=== PATIENT | female | born 1970 | race Caucasian/White ===

== ENCOUNTER 2017-03-06 21:13 | Emergency (ER) | payer MEDICAID ==
[~2017-03-06] VITALS: Ht 154.9 cm; Wt 73.5 kg
[2017-03-06 22:03] VITALS: Ht 154.9 cm; Wt 73.5 kg
[2017-03-06] MEDS ORDERED: SOD CHLORIDE 0.9% 1,000 ML IV STA (23:50)
[2017-03-06] MEDS ORDERED: morphine 4 MG/ML VIAL IV STA (23:50)
[2017-03-06] MEDS ORDERED: ONDANSETRON 4 MG INJ IV STA (23:50)
--- NOTE | 2017-03-07 | ERD ---
ER Documentation Chief Complaint Date/Time DATE: 03/06/17 TIME: 23:58 Chief Complaint ruq abd pain x 2 weeks worst today HPI 46-year-old female presents to emergency department for complaints of right upper quadrant abdominal started 2 weeks ago. Patient describes the pain as sharp pain, 6/10 scale, not better or worse with anything. Patient denies any fever or chills. Patient denies any diarrhea or constipation. Patient denies any vomiting. ROS All systems reviewed and are negative except as per history of present illness. Medications Home Meds Reported Medications [none] Unknown Strength No Conflict Check 03/06/17 Allergies Allergies: Coded Allergies: No Known Allergy (Unverified , 03/06/17) PMhx/Soc Medical and Surgical Hx: pt denies Medical Hx, pt denies Surgical Hx Hx Alcohol Use: No Hx Substance Use: No Hx Tobacco Use: No Smoking Status: Never smoker FmHx Family History: No coronary disease, No diabetes, No other Physical Exam Vitals Vital Signs Date Time Temp Pulse Resp B/P Pulse Ox O2 Delivery O2 Flow Rate FiO2 03/06/17 22:03 99.0 79 18 128/63 99 Physical Exam GENERAL: The patient is well developed and appropriate for usual state of health, in no apparent distress. CHEST: Clear to auscultation bilaterally. There are no rales, wheezes or rhonchi. HEART: Regular rate and rhythm. No murmurs, clicks, rubs or gallops. No S3 or S4. ABDOMEN: Soft, nontender and nondistended. Good bowel sounds. No rebound or guarding. No gross peritonitis. No gross organomegaly or masses. No Mejia sign or McBurney point tenderness. BACK: No midline or flank tenderness. EXTREMITIES: Equal pulses bilaterally. There is no peripheral clubbing, cyanosis or edema. No focal swelling or erythema. Full range of motion. Grossly neurovascularly intact. NEURO: Alert and oriented. Cranial nerves 2-12 intact. Motor strength in all 4 extremities with 5/5 strength. Sensation grossly intact. Normal speech and gait. SKIN: There is no apparent rash or petechia. The skin is warm and dry. HEMATOLOGIC AND LYMPHATIC: There is no evidence of excessive bruising or lymphedema. No gross cervical, axillary, or inguinal lymphadenopathy. Result Diagram: 03/07/170 03/07/17 0030 Results 24 hrs Laboratory Tests Test 03/07/17 00:10 03/07/17 00:30 Urine Color YELLOW Urine Clarity CLOUDY Urine pH 7.0 Urine Specific [place] 1.012 Urine Ketones NEGATIVEmg/dL Urine Nitrite NEGATIVEmg/dL Urine Bilirubin NEGATIVEmg/dL Urine Urobilinogen NEGATIVEmg/dL Urine Leukocyte Esterase 1+Brigid/ul Urine Microscopic RBC 1/HPF Urine Microscopic WBC 3/HPF Urine Squamous Epithelial Cells MODERATE/HPF Urine Bacteria FEW/HPF Urine Hemoglobin 2+mg/dL Urine Glucose NEGATIVEmg/dL Urine Total Protein NEGATIVEmg/dl White Blood Count 10.010^3/ul Red Blood Count 4.1810^6/ul Hemoglobin 12.2g/dl Hematocrit 36.7% Mean Corpuscular Volume 87.8fl Mean Corpuscular Hemoglobin 29.2pg Mean Corpuscular Hemoglobin Concent 33.2g/dl Red Cell Distribution Width 12.4% Platelet Count 94270^3/UL Mean Platelet Volume 9.6fl Neutrophils % 52.2% Lymphocytes % 36.7% Monocytes % 7.1% Eosinophils % 3.0% Basophils % 0.7% Nucleated Red Blood Cells % 0.0/100WBC Neutrophils # 5.210^3/ul Lymphocytes # 3.710^3/ul Monocytes # 0.710^3/ul Eosinophils # 0.310^3/ul Basophils # 0.110^3/ul Nucleated Red Blood Cells # 0.010^3/ul Sodium Level 140mmol/L Potassium Level 3.6mmol/L Chloride Level 103mmol/L Carbon Dioxide Level 28mmol/L Anion Gap 13 Blood Urea Nitrogen 17mg/dl Creatinine 0.79mg/dl Glucose Level 92mg/dl Calcium Level 9.6mg/dl Total Bilirubin 0.2mg/dl Direct Bilirubin 0.00mg/dl Indirect Bilirubin 0.2mg/dl Aspartate Amino Transf (AST/SGOT) 27IU/L Alanine Aminotransferase (ALT/SGPT) 40IU/L Alkaline Phosphatase 84IU/L Total Protein 8.2g/dl Albumin 4.0g/dl Globulin 4.20g/dl Albumin/Globulin Ratio 0.95 Lipase 70U/L Current Medications Medications (Trade) Dose Ordered Sig/Diana Route PRN Reason Start Time Stop Time Status Last Admin Dose Admin Sodium Chloride (NS) 1,000 ml @ 1,000 mls/hr Q1H STAT IV 03/06/17 23:50 03/07/17 00:49 DC 03/07/17 00:41 Morphine Sulfate (morphine) 4 mg ONCE STAT IV 03/06/17 23:50 03/06/17 23:54 DC 03/07/17 00:41 Ondansetron HCl (Zofran Inj) 4 mg ONCE STAT IV 03/06/17 23:50 03/06/17 23:54 DC 03/07/17 00:41 Patient was given medication for pain here in emergency department, after treatment, patient verbalized feeling much better. Patient's pain is improved. Normal saline IV bolus was given here in emergency department for rehydration, patient tolerated IV fluids. PROCEDURE: Abdominal ultrasound, limited. CLINICAL INDICATION: Abdominal pain. TECHNIQUE: Multiple real-time images were acquired of the patient's right upper abdomen utilizing a high resolution transducer. COMPARISON: None FINDINGS: The liver demonstrates normal echogenicity and size measuring 15.5 cm. There is no focal mass or intrahepatic biliary ductal dilatation. The portal vein is patent. The gallbladder is not distended. No gallstones are identified. There is no pericholecystic fluid or gallbladder wall thickening. The common bile duct measures 5.4 mm in maximal dimension. The visualized portions of the pancreas are unremarkable. No free fluid is identified. The right kidney is normal size and echogenicity measuring 10.0 cm. There is no focal renal mass or echogenic calculus identified. There is no obstructive uropathy. IMPRESSION: Unremarkable right upper abdominal ultrasound. .Jorje Kirby MD, MD Date Time Electronically viewed and signed by .Jorje Kirby MD, MD on 03/07/2017 01:11 .T/ CC: ALFONSO ROBERTS NP PROCEDURE: CT Abdomen and pelvis without contrast. CLINICAL INDICATION: Abdominal pain. TECHNIQUE: CT scan of the abdomen and pelvis was performed on a multi- detector high-resolution CT scanner. Contiguous axial images were obtained from the lung bases to the ischial tuberosities without intravenous contrast. Coronal and sagittal reformatted images were also obtained. Images were reviewed on the PACS workstation. One or more of the following dose reduction techniques were used: - Automated exposure control. - Adjustment of the mA and/or kV according to patient size. - Use of iterative reconstruction technique. Exam CTD/vol = 16.19 mGy. Total exam DLP = 913.45 mGy-cm. COMPARISON: None. FINDINGS: Evaluation of the lung bases demonstrates mild bibasilar atelectasis. Abdomen: The liver is normal in size and diffusely low in attenuation consistent with mild fatty infiltration. There is no focal mass or dilatation of the biliary tree. The gallbladder is not distended. The spleen, pancreas and bilateral adrenal glands are within normal limits. Bilateral kidneys are normal in size with no contour deforming mass identified. There is a punctate 1 mm calculus within the lower pole of the right kidney. There is no radiopaque ureteral calculus identified. There is no hydronephrosis or hydroureter. There is no retroperitoneal adenopathy. The abdominal aorta is of normal caliber. There is no abnormal bowel wall thickening or distension. There is no bowel obstruction or free air. A normal appendix is identified. There is no diverticulosis or diverticulitis. There is no ascites. Pelvis: The bladder is unremarkable. The uterus is unremarkable. There is a cystic structure within the left adnexa measuring 3.4 x 2.5 cm. There is no significant pelvic adenopathy or free fluid. Evaluation of the osseous structures demonstrates no suspicious lytic or blastic lesion. IMPRESSION: Left adnexal 3.4 cm cyst. Mild fatty infiltration of the liver. Nonobstructing right renal calculus. Mild bibasilar atelectasis. .Jorje Kirby MD, MD Date Time Electronically viewed and signed by .Jorje Kirby MD, MD on 03/07/2017 03:11 .T/ CC: ALFONSO ROBERTS [employer] Procedures/MDM Medical Decision Making: Patient's upper quadrant abdominal pain nonspecific at this time, possible gastritis related. There is an incidental finding of left adnexal cyst. Most likely not causing the pain. There is low suspicion for abdominal emergencies at this time. Patients abdominal exam is normal at this time. Patients radiology exam does not show any abdominal emergencies at this time. There is low suspicion for appendicitis, cholecystitis, abdominal aortic aneurysms or peritonitis at this time. There is low suspicion for sepsis. Patient appears well and is hemodynamically stable. Disposition: Home. Condition: Stable Prescription omeprazole, [place], Zofran Instructions: Patient is advised to take medications as prescribed. Patient is advised to rest, increase fluid intake and do brat diet for next 1-2 days and progress as tolerated. Patient is advised that if symptoms are worse, severe abdominal pain, uncontrolled vomiting, high fever, severe flank pain, worst signs and symptoms, to return to the emergency department immediately. Otherwise, patient can follow up with primary care doctor in 5-7 days. Disclaimer: Inadvertent spelling and grammatical errors are likely due to EHR/ dictation software use and do not reflect on the overall quality of patient care. Also, please note that the electronic time recorded on this note does not necessarily reflect the actual time of the patient encounter. Departure Diagnosis: Primary Impression: Abdominal pain Abdominal location: upper abdomen, unspecified Qualified Code: R10.10 - Pain of upper abdomen Condition: Stable Patient Instructions: Epigastric Pain (Uncertain Cause) Additional Instructions: Patient is advised to take medications as prescribed. Patient is advised to rest, increase fluid intake and do brat diet for next 1-2 days and progress as tolerated. Patient is advised that if symptoms are worse, severe abdominal pain , uncontrolled vomiting, high fever, severe flank pain, worst signs and symptoms , to return to the emergency department immediately. Otherwise, patient can follow up with primary care doctor in 5-7 days. ALFONSO ROBERTS NP Mar 07, 2017 00:00
[2017-03-07 00:52] LABS: BASOPHIL # 0.1 10^3/ul (0.0-0.1); BASOPHILS % 0.7 % (0.0-2.0); EOSINOPHILS # 0.3 10^3/ul (0.0-0.5); HEMATOCRIT 36.7 % (37.0-47.0); HEMOGLOBIN 12.2 g/dl (12.0-16.0); LYMPHOCYTES # 3.7 10^3/ul (0.8-2.9); LYMPHOCYTES % 36.7 % (15.0-51.0); MEAN CORPUSCULAR HEMOGLOBIN 29.2 pg (29.0-33.0); MEAN CORPUSCULAR HGB CONC 33.2 g/dl (32.0-37.0); MEAN CORPUSCULAR VOLUME 87.8 fl (82.0-101.0); MEAN PLATELET VOLUME 9.6 fl (7.4-10.4); MONOCYTE # 0.7 10^3/ul (0.3-0.9); MONOCYTES % 7.1 % (0.0-11.0); NEUTROPHIL # 5.2 10^3/ul (1.6-7.5); NEUTROPHILS % 52.2 % (39.0-77.0); PLATELET COUNT 260 10^3/UL (140-415); RED BLOOD COUNT 4.18 10^6/ul (4.20-5.40); RED CELL DISTRIBUTION WIDTH 12.4 % (11.5-14.5)
[2017-03-07 01:02] LABS: ADD UMIC YES; UR ASCORBIC ACID NEGATIVE (NEGATIVE); UR BACTERIA FEW /HPF (NONE SEEN); UR BILIRUBIN (Dip) NEGATIVE (NEGATIVE); UR BLOOD (Dip) 2+ mg/dL (NEGATIVE); UR CLARITY CLOUDY (CLEAR); UR COLOR YELLOW (YELLOW); UR GLUCOSE (Dip) NEGATIVE (NEGATIVE); UR KETONES (Dip) NEGATIVE (NEGATIVE); UR LEUKOCYTE ESTERASE (Dip) 1+ Leu/ul (NEGATIVE); UR NITRITE (Dip) NEGATIVE (NEGATIVE); UR RBC 1 /HPF (0-5); UR SPECIFIC GRAVITY (Dip) 1.012 (1.003-1.030); UR SQUAMOUS EPITHELIAL CELL MODERATE /HPF (FEW); UR TOTAL PROTEIN (Dip) NEGATIVE (NEGATIVE); UR UROBILINOGEN (Dip) NEGATIVE (NEGATIVE)
--- NOTE | 2017-03-07 01:11 | RADRPT ---
PROCEDURE: Abdominal ultrasound, limited. CLINICAL INDICATION: Abdominal pain. TECHNIQUE: Multiple real-time images were acquired of the patient's right upper abdomen utilizing a high resolution transducer. COMPARISON: None FINDINGS: The liver demonstrates normal echogenicity and size measuring 15.5 cm. There is no focal mass or in trahepatic biliary ductal dilatation. The portal vein is patent. The gallbladder is not distended. No gallstones are identified. There is no pericholecystic fluid or gallbladder wall thickening. The common bile duct measures 5.4 mm in maximal dimension. The visualized portions of the pancreas are unremarkable. No free fluid is identified. The right kidney is normal size and echogenicity measuring 10.0 cm. There is no focal renal mass or echogenic calculus identified. There is no obstructive uropathy. IMPRESSION: Unremarkable right upper abdominal ultrasound. .Jorje Kirby MD, MD Date Time Electronically viewed and signed by .Jorje Kirby MD, MD on 03/07/2017 01:11 .T/
[2017-03-07 01:26] LABS: ALBUMIN/GLOBULIN RATIO 0.95; BILIRUBIN,INDIRECT 0.2 mg/dl (0-1.1); BILIRUBIN,TOTAL 0.2 mg/dl (0.2-1.3); CALCIUM 9.6 mg/dl (8.4-10.2); CREATININE 0.79 mg/dl (0.44-1.00); POTASSIUM 3.6 mmol/L (3.5-5.1); TOTAL PROTEIN 8.2 g/dl (6.1-8.1)
--- NOTE | 2017-03-07 03:12 | RADRPT ---
PROCEDURE: CT Abdomen and pelvis without contrast. CLINICAL INDICATION: Abdominal pain. TECHNIQUE: CT scan of the abdomen and pelvis was performed on a multi-detector high-resolution CT scanner. Contiguous axial images were obtained from the lung bases to the ischial tuberosities wit hout intravenous contrast. Coronal and sagittal reformatted images were also obtained. Images were reviewed on the PACS workstation. One or more of the following dose reduction techniques were used: - Automated exposure control. - Adjustment of the mA and/or kV according to patient size. - Use of iterative reconstruction technique. Exam CTD/vol = 16.19 mGy. Total exam DLP = 913.45 mGy-cm. COMPARISON: None. FINDINGS: Evaluation of the lung bases demonstrates mild bibasilar atelectasis. Abdomen: The liver is normal in size and diffusely low in attenuation consistent with mild fatty in filtration. There is no focal mass or dilatation of the biliary tree. The gallbladder is not diste nded. The spleen, pancreas and bilateral adrenal glands are within normal limits. Bilateral kidney s are normal in size with no contour deforming mass identified. There is a punctate 1 mm calculus w ithin the lower pole of the right kidney. There is no radiopaque ureteral calculus identified. Ther e is no hydronephrosis or hydroureter. There is no retroperitoneal adenopathy. The abdominal aorta is of normal caliber. There is no abnormal bowel wall thickening or distension. There is no bowel obstruction or free air . A normal appendix is identified. There is no diverticulosis or diverticulitis. There is no asci rigoberto. Pelvis: The bladder is unremarkable. The uterus is unremarkable. There is a cystic structure with in the left adnexa measuring 3.4 x 2.5 cm. There is no significant pelvic adenopathy or free fluid. Evaluation of the osseous structures demonstrates no suspicious lytic or blastic lesion. IMPRESSION: Left adnexal 3.4 cm cyst. Mild fatty infiltration of the liver. Nonobstructing right renal calculus. Mild bibasilar atelectasis. .Jorje Kirby MD, MD Date Time Electronically viewed and signed by .Jorje Kirby MD, MD on 03/07/2017 03:11 .T/
[2017-03-07] MEDS ORDERED: HYDR-906 PO (03:18)
[2017-03-07] MEDS ORDERED: MAG-19 PO (03:18)
[2017-03-07] MEDS ORDERED: OMEP20CA16 PO (03:18)
[2017-03-07] MEDS ORDERED: ONDA4TAB14 PO (03:18)
[2017-03-07 03:35] VITALS: BP 134/81; PULSE 68; RESP 20
== END 2017-03-07 03:36 | disposition home or self-care (01) ==
LOC: FTE 21:13
DX: R10.11 Right upper quadrant pain (principal)
CPT/HCPCS: 36415; 74176; 76705; 80053; 81001; 83690; 85025; 96374; 96375; J2270; J2405; J7030; Z7502

== ENCOUNTER 2017-11-07 14:30 | Emergency (ER) | END 2017-11-07 17:19 | disposition home or self-care (01) ==